=== PATIENT | male | born 1990 | race Caucasian/White ===

== ENCOUNTER 2018-02-01 15:40 | Emergency (ER) | payer BC, OTHER ==
[2018-02-01 15:53] VITALS: BP 131/72
[2018-02-01] MEDS ORDERED: TETANUS/DIPHTHERIA/PERTUSSIS 0.5 ML SYRINGE IM ONE (16:32)
--- NOTE | 2018-02-01 16:35 | ED Physician Documentation ---
PD HPI ANIMAL BITE - Stated complaint Stated Complaint: DOG BITE - Chief complaint Chief Complaint: Laceration - History obtained from History obtained from: Patient - History of Present Illness Location of injury(ies): LLE Details of the event: Dog, Scratch, Pet animal, Well appearing, Immunized, Provoked, Animal can be observed Timing - onset: Today Timing - duration: Hours Timing - details: Abrupt onset, Still present Improved by: Rest Worsened by: Moving, Palpating Associated symptoms: No: Weakness, Numbness Contributing factors: No: Immunocompromised Similar symptoms before: Has not had sx before Recently seen: Not recently seen - Additional information Additional information: 27-year-old male was walking his 38 pound standard poodle at [facility] when the dog began to Bark at another animal and crossed the path. While he was barking he passed under the patient and a tooth abraded his left lower thigh posteriorly causing a deep abrasion. Patient has some localized pain associated with this and is able to control bleeding with direct pressure. Review of Systems Constitutional: denies: Fever Eyes: denies: Decreased vision Ears: denies: Ear pain Nose: denies: Congestion Respiratory: denies: Cough GI: denies: Vomiting Skin: reports: Abrasion (s), Bite / sting. denies: Rash Musculoskeletal: reports: Extremity pain. denies: Neck pain, Back pain Neurologic: denies: Generalized weakness, Focal weakness, Numbness PD PAST MEDICAL HISTORY - Past Medical History Past Medical History: No - Past Surgical History Past Surgical History: No - Present Medications Home Medications: Ambulatory Orders Medication Instructions Recorded Confirmed No Known Home Medications [No 02/01/18 02/01/18 Known Home Medications] - Allergies Allergies/Adverse Reactions: Allergies Allergy/AdvReac Type Severity Reaction Status Date / Time No Known Drug Allergies Allergy Verified 02/01/18 15:53 - Social History Does the pt smoke?: Yes Smoking Status: Current every day smoker Does the pt drink ETOH?: Yes ETOH Use: Beer Does the pt have substance abuse?: Yes Substance Use and Type: Marijuana - Immunizations Immunizations are current?: No Immunizations: TDAP >10years/unknown - POLST Patient has POLST: No PD ED PE NORMAL - Vitals Vital signs reviewed: Yes (hypertensive ) - General General: Alert and oriented X 3, No acute distress, Well developed/nourished - HEENT HEENT: Atraumatic, PERRL, EOMI - Neck Neck: Supple, no meningeal sign - Respiratory Respiratory: No respiratory distress - Derm Derm: Normal color, Warm and dry, No rash - Extremities Extremities: No deformity, No edema, Other (over the posterior thigh on the left side is a 2cm abrasion to the medial surface that does not involve deeper strucuters. The wound is probed and there is no puncture wound through the dermis ) - Neuro Neuro: No motor deficit, No sensory deficit Eye Opening: Spontaneous Motor: Obeys Commands Verbal: Oriented GCS Score: 15 - Psych Psych: Normal mood, Normal affect Results - Vitals Vitals: Vital Signs - 24 hr 02/01/18 15:49 Temperature 36.4 C L Heart Rate 77 Respiratory 16 Rate Blood Pressure 131/72 H O2 Saturation 94 Oxygen O2 Source Room air PD MEDICAL DECISION MAKING - ED course Complexity details: considered differential, d/w patient, d/w family ED course: 27-year-old male with an abrasion to his posterior thigh from his own dog has no puncture wound through the dermis and the wound is treated conservatively with cleansing and the patient is up-to-date on his tetanus booster. The animal he has is observable for 10 days and is up-to-date on its immunizations. This does appear to have been a provoked attack as the animal was barking at another animal and accidentally abraded his owners leg. Departure - Departure Disposition: 01 Home, Self Care Clinical Impression: Abrasion Condition: Stable Instructions: ED Bite Dog Follow-Up: Your, doctor [Other]
== END 2018-02-01 16:44 | disposition home or self-care (01) ==
LOC: ED 15:40
DX: S70.312A Abrasion, left thigh, initial encounter (principal); W54.0XXA Bitten by dog, initial encounter; Y93.K1 Activity, walking an animal; Y92.830 Public park as the place of occurrence of the external cause; Z23 Encounter for immunization; F17.200 Nicotine dependence, unspecified, uncomplicated
CPT/HCPCS: 90471; 99282; 99283